=== PATIENT | female | born 1980 ===

== ENCOUNTER 2017-12-21 16:29 | Observation (INO) | payer BC, MEDICAID ==
--- NOTE | 2017-12-21 17:24 | ED PDOC ---
Arrival/HPI - General Time Seen by Provider: 12/21/17 17:13 Historian: Patient - History of Present Illness Narrative History of Present Illness (Text): 37yoF, post- from 12/12/17 Dr. Nilson Montero in [place], [place], HTN on labetolol 300mg twice daily, having fatigue which results in difficulty breathing, swelling generalized, and headache but otherwise no chest pain/ abdomen pain which was clarified/nausea/vomiting/fever/chills/cough/pain with urination/loss of limb function/dark or blood stool. 12/21/17 17:22 12/21/17 19:17 Time/Duration: 24 hours Symptom Onset: Gradual Symptom Course: Unchanged Activities at Onset: Rest Context: Sitting Past Medical History - Provider Review Nursing Documentation Reviewed: Yes - Travel History Have you recently traveled outside US w/in the past 3 mons?: No - Infectious Disease Hx of Infectious Diseases: None - Psychiatric Hx Substance Use: No - Surgical History Hx Section: Yes - Anesthesia Hx Anesthesia: Yes Hx Anesthesia Reactions: No Family/Social History - Physician Review Nursing Documentation Reviewed: Yes Family/Social History: No Known Family HX Smoking Status: Unknown If Ever Smoked Hx Alcohol Use: Yes Hx Substance Use: No Allergies/Home Meds Allergies/Adverse Reactions: Allergies No Known Allergies Allergy (Verified 12/21/17 17:20) Home Medications: Home Meds Medication Instructions Recorded Confirmed No Known Home Med 01/13/16 01/13/16 Review of Systems - Review of Systems Constitutional: Fatigue Eyes: Normal ENT: Normal Respiratory: Normal Cardiovascular: Normal Gastrointestinal: Normal Genitourinary Female: Normal Musculoskeletal: Normal Skin: Normal Neurological: Headache Endocrine: Normal Hemo/Lymphatic: Normal Psychiatric: Normal Physical Exam Vital Signs Reviewed: Yes Vital Signs Temp Pulse Resp BP Pulse Ox 12/21/17 18:32 88 20 172/106 H 98 12/21/17 17:28 97.9 F 78 20 193/118 H 99 Appearance: Positive for: Well-Appearing, Non-Toxic, Comfortable Pain Distress: None Mental Status: Positive for: Alert and Oriented X 3 - Systems Exam Head: Present: Atraumatic, Normocephalic Pupils: Present: PERRL Extroacular Muscles: Present: EOMI Conjunctiva: Present: Normal Ears: Present: Normal Mouth: Present: Moist Mucous Membranes Pharnyx: Present: Normal Nose (External): Present: Atraumatic Nose (Internal): Present: Normal Inspection Neck: Present: Normal Range of Motion Respiratory/Chest: Present: Clear to Auscultation, Good Air Exchange Cardiovascular: Present: Regular Rate and Rhythm Abdomen: No: Tenderness, Distention, Normal Bowel Sounds, Peritoneal Signs, Rebound, Guarding, McBurney's Point Tender, Rovsing's Sign Present, Hernias, Feeding Tubes, Ostomy Tubes, Mass/Organomegaly, Scars, Other Rectal: Present: Other (guiac test negative. no gross blood.) Back: Present: Normal Inspection Upper Extremity: Present: Normal Inspection Lower Extremity: Present: Edema. No: Normal Inspection, CALF TENDERNESS, NORMAL PULSES, Cyanosis, Normal ROM, Vidhya's Sign, Tenderness, Swelling, Erythema, Deformity, Temperature Abnormalties, Neurovascularly Intact, Capillary Refill < 2 s, Other Neurological: Present: GCS=15, CN II-XII Intact, Speech Normal, Motor Func Grossly Intact Skin: Present: Warm, Normal Color Psychiatric: Present: Alert, Oriented x 3, Normal Insight, Normal Concentration Medical Decision Making ED Course and Treatment: 37yoF, post- from 12/12/17 Dr. Sebastián Ayers and [facility] in [place], [place], Diabetes, HTN on labetolol 300mg twice daily, having elevated blood pressure at home 160s systolic - 200 systolic, with fatigue which results in difficulty breathing, swelling generalized, and headache but otherwise no chest pain/abdomen pain which was clarified/nausea/vomiting/fever/chills/cough/ pain with urination/loss of limb function. wbc 8 hb 8 plts 341 trop less than 0.01 bnp 784 AST 51 ALT 78 Alk phos 129 UA negative d/w Dr. Ortiz [phone] who stated recommends admit to the ICU, bp control with magnesium labetolol iv. paged ICU. 12/21/17 19:27 iv magnesium, labetolol, tylenol, zofran. paged ICU. 12/21/17 19:31 iv labetolol gtt. d/w Dr. Joe ICU who will evaluate pt. signed out to Dr. Miller who will repeat bp, fu CT head, CTa chest, ICU, disposition. 12/21/17 19:34 12/21/17 19:35 12/21/17 19:35 12/21/17 19:36 Reassessment Condition: Re-examined, Improved - Lab Interpretations Lab Results: 12/21/17 17:42 12/21/17 17:42 Lab Results 12/21/17 17:42: Beta HCG, Quant 40.82 H 12/21/17 17:42: PT 12.1, INR 1.06, APTT 25.5 12/21/17 17:42: Sodium 142, Potassium 4.5, Chloride 105, Carbon Dioxide 25, Anion Gap 16, BUN 9, Creatinine 0.8, Est GFR ( Amer) > 60, Est GFR (Non- Af Amer) > 60, Random Glucose 101, Calcium 8.9, Magnesium 2.0, Total Bilirubin 0.3, AST 51 H, ALT 78 H, Alkaline Phosphatase 129 H, Lactate Dehydrogenase 567, Total Creatine Kinase 211, Troponin I < 0.01, NT-Pro-B Natriuret Pep 784 H, Total Protein 6.5, Albumin 3.5, Globulin 3.0, Albumin/Globulin Ratio 1.2 12/21/17 17:42: Urine Color Light yellow, Urine Appearance Clear, Urine pH 7.0, Ur Specific [place] 1.010, Urine Protein Negative, Urine Glucose (UA) Negative, Urine Ketones Negative, Urine Blood Negative, Urine Nitrate Negative, Urine Bilirubin Negative, Urine Urobilinogen 0.2, Ur Leukocyte Esterase Negative 12/21/17 17:42: WBC 8.4 D, RBC 3.49 L, Hgb 8.2 L, Hct 25.9 L, MCV 74.2 L, MCH 23.5 L, MCHC 31.7, RDW 16.4 H, Plt Count 341, MPV 8.9, Gran % 63.2, Lymph % ( Auto) 27.6, [place] % (Auto) 5.2, Eos % (Auto) 3.6, Baso % (Auto) 0.4, Gran # 5.34 , Lymph # (Auto) 2.3, [place] # (Auto) 0.4, Eos # (Auto) 0.3, Baso # (Auto) 0.03 I have reviewed the lab results: Yes - RAD Interpretation Radiology Orders: 12/21/17 18:17 HEAD W/O CONTRAST [CT] Stat CHEST PORTABLE [RAD] Stat 12/21/17 18:24 ANGIO CHEST PE PROTOCOL [CT] Stat - EKG Interpretation Interpreted by ED Physician: Yes (NSR, flipped t waves avr, v1, v2, flattened avl) Type: 12 lead EKG - Medication Orders Current Medication Orders: Magnesium Sulfate/Dextrose (Magnesium Sulfate 1 Gm/100 Ml D5w) 1 gm in 100 mls @ 100 mls/hr IVPB ONCE ONE Stop: 12/21/17 19:44 Discontinued Medications Acetaminophen (Tylenol 325mg Tab) 975 mg PO STAT STA Stop: 12/21/17 18:44 Labetalol HCl (Trandate) 20 mg IV STAT STA Stop: 12/21/17 18:44 Ondansetron HCl (Zofran Inj) 2 mg IVP STAT STA Stop: 12/21/17 18:44 Disposition/Present on Arrival - Present on Arrival Any Indicators Present on Arrival: Yes History of DVT/PE: No History of Uncontrolled Diabetes: No Urinary Catheter: No History Surgical Site Infection Following: None - Disposition Have Diagnosis and Disposition been Completed?: Yes Diagnosis: Anemia, Hypertension in , eclampsia, condition Disposition: HOSPITALIZED Patient Problems: Current Active Problems Problem Status Onset Anemia Acute Hypertension in , eclampsia, condition Acute
[2017-12-21 17:55] LABS: BASO # 0.03 K/mm3 (0.0-2.0); BASO % 0.4 % (0.0-3.0); EOS # 0.3 (0.0-0.7); EOS % 3.6 % (1.5-5.0); GRAN # 5.34 (1.4-6.5); GRAN % 63.2 % (50.0-68.0); HEMOGLOBIN 8.2 g/dL (12.0-16.0); LYMPH # 2.3 (1.2-3.4); LYMPH % 27.6 % (22.0-35.0); MEAN CELL VOLUME 74.2 fl (80.0-105.0); MEAN CORPUSCULAR HEMOGLOBIN 23.5 pg (25.0-35.0); MEAN CORPUSCULAR HGB CONC 31.7 g/dl (31.0-37.0); MEAN PLATELET VOLUME 8.9 fl (7.0-11.0); MONO # 0.4 (0.1-0.6); MONO % 5.2 % (1.0-6.0); RBC 3.49 10^6/uL (3.5-6.1); RED CELL DISTRIBUTION WIDTH 16.4 % (11.5-14.5); URINE BILIRUBIN NEGATIVE (NEGATIVE); URINE BLOOD NEGATIVE (NEGATIVE); URINE GLUCOSE (UA) NEGATIVE (NEGATIVE); URINE LEUKOCYTE ESTERASE NEGATIVE Leu/uL (NEGATIVE); URINE PROTEIN NEGATIVE mg/dL (<30 mg/dL); URINE UROBILINOGEN 0.2 E.U./dL (<1 E.U./dL); WHITE BLOOD COUNT 8.4 10^3/ul (4.5-11.0)
[2017-12-21 18:01] LABS: URINE APPEARANCE CLEAR (CLEAR); URINE COLOR LIGHT YELLOW (YELLOW)
[2017-12-21 18:05] LABS: ALB/GLOB RATIO 1.2 (1.1-1.8); ALBUMIN 3.5 g/dL (3.0-4.8); ALT/SGPT 78 U/L (7-56); AST/SGOT 51 U/L (14-36); BLOOD UREA NITROGEN 9 mg/dL (7-21); CALCIUM 8.9 mg/dL (8.4-10.5); GFR AFRICAN-AMERICAN > 60; GFR NON-AFRICAN AMERICAN > 60
[2017-12-21 18:07] LABS: INR 1.06 (0.93-1.08); PARTIAL THROMBOPLASTIN TIME 25.5 Seconds (25.1-36.5); PROTHROMBIN TIME 12.1 SECONDS (9.4-12.5)
[2017-12-21 18:16] LABS: B-TYPE NATRIURETIC PEPTIDE 784 pg/mL (0-450); TROPONIN I < 0.01 ng/mL
[2017-12-21] MEDS ORDERED: Labetalol 5 mg/ml Inj 20ML IV STA (18:43)
[2017-12-21] MEDS ORDERED: Magnesium Sulfate 1 gm in D5W 1 GM/100 ML BAG IVPB ONE ×2 (18:45→19:31)
[2017-12-21] MEDS ORDERED: Iohexol 350 MG/100 ML VIAL ONE (18:47)
[2017-12-21] MEDS ORDERED: Labetalol 100 MG in Sodium Chloride 0.9% 80 ML IV PRN (19:31)
--- NOTE | 2017-12-21 19:39 | CARD ---
APPROVED REPORT EKG Measurement Heart [id number] <Conclusion> Normal sinus rhythm Possible Left atrial enlargement Incomplete right bundle branch block Borderline ECG
--- NOTE | 2017-12-21 21:22 | ED PDOC ---
Arrival/HPI - General Chief Complaint: High Blood Pressure Time Seen by Provider: 12/21/17 17:13 Past Medical History - Travel History Have you recently traveled outside [place] w/in the past 3 mons?: No - Infectious Disease Hx of Infectious Diseases: None - Cardiac Hx Hypertension: Yes - Pulmonary Hx Respiratory Disorders: No - Neurological Hx Neurological Disorder: No - HEENT Hx HEENT Disorder: No - Renal Hx Renal Disorder: No - Endocrine/Metabolic Other/Comment: GDM - Hematological/Oncological Hx Blood Disorders: No - Integumentary Hx Dermatological Disorder: No - Musculoskeletal/Rheumatological Hx Musculoskeletal Disorders: No - Psychiatric Hx Substance Use: No - Surgical History Hx Section: Yes - Anesthesia Hx Anesthesia: Yes Hx Anesthesia Reactions: No Family/Social History Family/Social History: No Known Family HX Smoking Status: Unknown If Ever Smoked Hx Alcohol Use: Yes Hx Substance Use: No Allergies/Home Meds Allergies/Adverse Reactions: Allergies No Known Allergies Allergy (Verified 12/21/17 17:20) Home Medications: Home Meds Medication Instructions Recorded Confirmed Labetalol [Trandate] 300 mg PO BID 12/21/17 12/21/17 Levothyroxine [Synthroid] 100 mcg PO DAILY 12/21/17 12/21/17 MetFORMIN [glucoPHAGE] 1,000 mg PO BID 12/21/17 12/21/17 Physical Exam Vital Signs Reviewed: Yes Vital Signs Temp Pulse Pulse Resp BP BP Pulse Ox 12/22/17 00:13 89 19 98 12/22/17 00:02 82 18 158/87 H 97 12/21/17 21:15 84 19 151/83 H 98 12/21/17 19:56 98.3 F 80 20 143/72 99 12/21/17 19:17 98 H 172/106 H 12/21/17 18:32 88 20 172/106 H 98 12/21/17 17:30 80 192/112 H 12/21/17 17:28 97.9 F 78 20 193/118 H 99 Temperature: Afebrile Blood Pressure: Hypertensive Pulse: Regular Respiratory Rate: Normal Appearance: Positive for: Well-Appearing, Non-Toxic, Comfortable Pain Distress: None Mental Status: Positive for: Alert and Oriented X 3 Medical Decision Making ED Course and Treatment: 12/21/17 19:10 Case endorsed to me by Dr. Pimentel pending CT head and CT angio chest. Patient whose past medical history includes post- delivery. presented with headache, difficulty breathing, and uncontrolled hypertension. Patient's blood pressure was treated earlier with IV Labetalol and controlled. Question of IV Labetalol to drip to be started if pressure elevates. Patient was seen and evaluated by Engraver Letter Dr. Joe and Termite Control Service Representative. Decision on bed placement pending. EXAM: CT Head Without Intravenous Contrast Dictated and Authenticated by: Sharad Anthony MD 12/21/2017 9:34 PM IMPRESSION: 1. No definite acute intracranial abnormality EXAM: CT Angiography Chest With Intravenous Contrast Dictated and Authenticated by: Sharad Anthony MD 12/21/2017 9:51 PM IMPRESSION: 1. No definite CT evidence of pulmonary embolism. 2. Findings suggestive of asymmetric mild pulmonary edema. Clinical correlation is needed. 3. Incidental/non-acute findings are described above. 12/21/17 22:45 Pt. was seen and evaluated by and remote medical coder.Request pt. admitted to telemetry.Further workup /treatment care by magistrate. 12/21/17 23:50 - Lab Interpretations Lab Results: 12/21/17 17:42 12/21/17 17:42 Lab Results 12/21/17 17:42: Beta HCG, Quant 40.82 H 12/21/17 17:42: PT 12.1, INR 1.06, APTT 25.5 12/21/17 17:42: Sodium 142, Potassium 4.5, Chloride 105, Carbon Dioxide 25, Anion Gap 16, BUN 9, Creatinine 0.8, Est GFR ( Amer) > 60, Est GFR (Non- Af Amer) > 60, Random Glucose 101, Calcium 8.9, Magnesium 2.0, Total Bilirubin 0.3, AST 51 H, ALT 78 H, Alkaline Phosphatase 129 H, Lactate Dehydrogenase 567, Total Creatine Kinase 211, Troponin I < 0.01, NT-Pro-B Natriuret Pep 784 H, Total Protein 6.5, Albumin 3.5, Globulin 3.0, Albumin/Globulin Ratio 1.2 12/21/17 17:42: Urine Color Light yellow, Urine Appearance Clear, Urine pH 7.0, Ur Specific [place] 1.010, Urine Protein Negative, Urine Glucose (UA) Negative, Urine Ketones Negative, Urine Blood Negative, Urine Nitrate Negative, Urine Bilirubin Negative, Urine Urobilinogen 0.2, Ur Leukocyte Esterase Negative 12/21/17 17:42: WBC 8.4 D, RBC 3.49 L, Hgb 8.2 L, Hct 25.9 L, MCV 74.2 L, MCH 23.5 L, MCHC 31.7, RDW 16.4 H, Plt Count 341, MPV 8.9, Gran % 63.2, Lymph % ( Auto) 27.6, [place] % (Auto) 5.2, Eos % (Auto) 3.6, Baso % (Auto) 0.4, Gran # 5.34 , Lymph # (Auto) 2.3, [place] # (Auto) 0.4, Eos # (Auto) 0.3, Baso # (Auto) 0.03 - RAD Interpretation Radiology Orders: 12/21/17 18:17 HEAD W/O CONTRAST [CT] Stat CHEST PORTABLE [RAD] Stat 12/21/17 18:24 ANGIO CHEST PE PROTOCOL [CT] Stat - Medication Orders Current Medication Orders: Acetaminophen (Tylenol 325mg Tab) 650 mg PO Q6H PRN PRN Reason: Pain, moderate (4-7) Last Admin: 12/21/17 23:30 Dose: 650 mg MAR Pain/Vitals Document 12/21/17 23:30 [email or web address] (Rec: 12/22/17 01:56 [email or web address] [id number]) Pain Reassessment Is This A Pain ReAssessment? No Sleep Is patient sleeping during reassessment? No Presence of Pain Presence of Pain Yes Pain Scale Used Pain Scale Used Numeric Location Pain Location Body Desk Director Description Constant Intensity 7 Scale Used Numeric Pain Behavior Facial Grimacing Aggravating Factors Changing Position Alleviating Factors Medication Insulin Human Regular (Humulin R Low) 0 units SC ACHS KRYSTAL PRN Reason: Protocol Labetalol HCl (Trandate) 300 mg PO BID KRYSTAL Levothyroxine Sodium (Synthroid) 100 mcg PO ACB KRYSTAL Pantoprazole Sodium (Protonix Ec Tab) 40 mg PO 0600 KRYSTAL Last Admin: 12/22/17 06:23 Dose: 40 mg Discontinued Medications Acetaminophen (Tylenol 325mg Tab) 975 mg PO STAT STA Stop: 12/21/17 18:44 Last Admin: 12/21/17 19:13 Dose: 975 mg MAR Pain/Vitals Document 12/21/17 19:13 [email or web address] (Rec: 12/21/17 19:14 [email or web address] [id number]) Pain Reassessment Is This A Pain ReAssessment? No Sleep Is patient sleeping during reassessment? No Presence of Pain Presence of Pain Yes Pain Scale Used Pain Scale Used Numeric Location Pain Location Body Desk Director Description Constant Intensity 7 Scale Used Numeric Pain Behavior Facial Grimacing Aggravating Factors Changing Position Alleviating Factors Medication Hydralazine HCl (Apresoline) 10 mg IVP ONCE STA Stop: 12/22/17 00:42 Last Admin: 12/22/17 01:02 Dose: 10 mg IVP Administration Document 12/22/17 01:02 TTC (Rec: 12/22/17 01:03 [id number]) Charges for Administration # of IVP Administrations 1 MAR Pulse and Blood Pressure Document 12/22/17 01:02 TTC (Rec: 12/22/17 01:03 [id number]) Blood Pressure Blood Pressure (100/60-150/90) 172/99 Magnesium Sulfate/Dextrose (Magnesium Sulfate 1 Gm/100 Ml D5w) 1 gm in 100 mls @ 100 mls/hr IVPB ONCE ONE Stop: 12/21/17 19:44 Last Admin: 12/21/17 20:31 Dose: 100 mls/hr eMAR Start Stop Document 12/21/17 20:31 [email or web address] (Rec: 12/21/17 20:32 [email or web address] [id number]) Intravenous Solution Start Date 12/21/17 Start Time 20:31 End Date 12/21/17 Magnesium Sulfate/Dextrose (Magnesium Sulfate 1 Gm/100 Ml D5w) 1 gm in 100 mls @ 100 mls/hr IVPB ONCE ONE Stop: 12/21/17 20:30 Last Admin: 12/21/17 23:13 Dose: 100 mls/hr eMAR Start Stop Document 12/21/17 23:13 [email or web address] (Rec: 12/21/17 23:13 [email or web address] [id number]) Intravenous Solution Start Date 12/21/17 Start Time 23:13 End Date 12/21/17 Ibuprofen (Motrin Tab) 800 mg PO STAT STA Stop: 12/22/17 02:06 Last Admin: 12/22/17 02:14 Dose: 800 mg Labetalol HCl (Trandate) 20 mg IV STAT STA Stop: 12/21/17 18:44 Last Admin: 12/21/17 19:17 Dose: 20 mg eMAR Start Stop Document 12/21/17 19:17 [email or web address] (Rec: 12/21/17 19:17 [email or web address] [id number]) Intravenous Solution Start Date 12/21/17 Start Time 19:17 End Date 12/21/17 MAR Pulse and Blood Pressure Document 12/21/17 19:17 [email or web address] (Rec: 12/21/17 19:17 [email or web address] [id number]) Pulse Pulse Rate (60-90) 98 Blood Pressure Blood Pressure (100/60-150/90) 172/106 Ondansetron HCl (Zofran Inj) 2 mg IVP STAT STA Stop: 12/21/17 18:44 Last Admin: 12/21/17 19:14 Dose: 2 mg IVP Administration Document 12/21/17 19:14 [email or web address] (Rec: 12/21/17 19:14 [email or web address] [id number]) Charges for Administration # of IVP Administrations 1 - Scribe Statement The provider has reviewed the documentation as recorded by the Warren Roberts Provider Scribe Attestation: All medical record entries made by the Warren were at my direction and personally dictated by me. I have reviewed the chart and agree that the record accurately reflects my personal performance of the history, physical exam, medical decision making, and the department course for this patient. I have also personally directed, reviewed, and agree with the discharge instructions and disposition. Disposition/Present on Arrival - Present on Arrival Any Indicators Present on Arrival: Yes History of DVT/PE: No History of Uncontrolled Diabetes: No Urinary Catheter: No History of Decub. Ulcer: No History Surgical Site Infection Following: None - Disposition Have Diagnosis and Disposition been Completed?: Yes Diagnosis: Anemia, Hypertension in , eclampsia, condition, Hypertensive emergency Disposition: HOSPITALIZED Disposition Time: 22:52 Patient Problems: Current Active Problems Problem Status Onset Anemia Acute Hypertension in , eclampsia, condition Acute Hypertensive emergency Acute Condition: STABLE
--- NOTE | 2017-12-21 21:34 | CT ---
EXAM: CT Head Without Intravenous Contrast CLINICAL HISTORY: 37 years old, female; Pain; Headache; Tension; Additional info: 37yof, post-, hypertensive w ARREDONDO TECHNIQUE: Axial computed tomography images of the head/brain without intravenous contrast. All CT scans at this facility use one or more dose reduction techniques, viz.: automated exposure control; ma/kV adjustment per patient size (including targeted exams where dose is matched to indication; i.e. head); or iterative reconstruction technique. Coronal and sagittal reformatted images were created and reviewed. COMPARISON: No relevant prior studies available. FINDINGS: Brain: No intracranial hemorrhage. No mass. No definite edema. Ventricles: No hydrocephalus. Bones/joints: No acute fracture. Soft tissues: Unremarkable. Sinuses: No acute sinusitis. Mastoid air cells: No mastoid effusion. Orbits: Unremarkable as visualized. IMPRESSION: 1. No definite acute intracranial abnormality.
--- NOTE | 2017-12-21 21:52 | CT ---
EXAM: CT Angiography Chest With Intravenous Contrast CLINICAL HISTORY: 37 years old, female; Signs and symptoms; Shortness of breath; Patient HX: Post 2x weeks. C section; Additional info: 37f, post-, fatigue/sob. Eval pe. TECHNIQUE: Axial computed tomographic angiography images of the chest with intravenous contrast using pulmonary embolism protocol. All CT scans at this facility use one or more dose reduction techniques, viz.: automated exposure control; ma/kV adjustment per patient size (including targeted exams where dose is matched to indication; i.e. head); or iterative reconstruction technique. MIP reconstructed images were created and reviewed. Coronal and sagittal reformatted images were created and reviewed. CONTRAST: 100 mL of OMNI 350 administered intravenously. COMPARISON: No relevant prior studies available. FINDINGS: Limitations: Suboptimal timing of bolus. Motion artifact - mild. Pulmonary arteries: No definite pulmonary embolism. Aorta: No aneurysm. No dissection. Lungs: Mosaic pattern of lung parenchyma, with scattered groundglass opacities most pronounced within right lower lobe. Interlobular septal thickening. Minimal atelectasis/scarring. Pleural space: Probable trace bilateral pleural effusions. No pneumothorax. Heart: [id number] cardiomegaly. No significant pericardial effusion. Bones/joints: Calcification along right shoulder. Minimal gas within glenohumeral joints. Early degenerative changes of spine. No acute fracture. Soft tissues: Unremarkable. Lymph nodes: No pathologically enlarged lymph nodes. Kidneys and ureters: Small calculus vs contrast within LEFT kidney. IMPRESSION: 1. No definite CT evidence of pulmonary embolism. 2. Findings suggestive of asymmetric mild pulmonary edema. Clinical correlation is needed. 3. Incidental/non-acute findings are described above.
--- NOTE | 2017-12-21 21:55 | CP.PCM.HP ---
<Davina Youssef - Last Filed: 12/21/17 23:24> History of Present Illness - History of Present Illness History of Present Illness: PGY-[address] Joe CC: Preclampsia Ms Thrasher, 37yo morbid obese F, , , with PMHx gestational diabetes and preclampsia, HTN on labetolol 300mg twice daily, and hypothyroidism , post- from 12/12/17 Dr. Nilson Montero in [place], [place], came in for HTN. It was associated with fatigue, SOB, swelling legs, and headache. She started to have high blood pressure in week 14. She never had seizure. She has been taking daily BP, and she noticed that yesterday her BP rises. Mean around 170s/90s. Highest at home was 209/89. She sleeps on 4-5 pillows, no SOB at rest , but (+) SOB on normal house chores. In the ED, VS HR 78, BP 193/118 Pt got tylenol 975 for arredondo, labetalol 20mg IV x 1, mg 1gm x 2, and zofran 2mg EKG: NSR 81, incomplete RBBB, QTc [address]: No acute intracranial a Chest CT: No pulmonary embolism. Asymmetric mild pulmonary edema. small calculus vs contrast in L kidney. ROS - (+) ARREDONDO, mild now, (+) b/l edema (+) fatique, (+) lactating, (+) lochia. (+ ) Dypnsea on exertion Denies dizziness, CP, palpitation, abdomen pain, nausea/vomiting/fever/chills/ cough/pain with urination/loss of limb function/dark or blood stool, numb/ tingling PMH: PMHx gestational diabetes and preclampsia Hypothyrodism morbid obese PSH: , 12/12/17 FH: DM, CAD OBGYN: , 1 loss due to spontanous at week 9. SH: Deneis smoke, drink, drug All: NKDA Med: Metformin 1000 BID thyroxine 100 mcg daily labetolol 300mg twice daily PMD: Nat Cabral Present on Admission - Present on Admission Any Indicators Present on Admission: No Past Patient History - Infectious Disease Hx of Infectious Diseases: None - Past Social History Smoking Status: Unknown If Ever Smoked - CARDIAC Hx Hypertension: Yes - PULMONARY Hx Respiratory Disorders: No - NEUROLOGICAL Hx Neurological Disorder: No - HEENT Hx HEENT Problems: No - RENAL Hx Chronic Kidney Disease: No - ENDOCRINE/METABOLIC Other/Comment: GDM - HEMATOLOGICAL/ONCOLOGICAL Hx Blood Disorders: No - INTEGUMENTARY Hx Dermatological Problems: No - MUSCULOSKELETAL/RHEUMATOLOGICAL Hx Musculoskeletal Disorders: No - PSYCHIATRIC Hx Substance Use: No - SURGICAL HISTORY Hx Section: Yes - ANESTHESIA Hx Anesthesia: Yes Hx Anesthesia Reactions: No Meds Allergies/Adverse Reactions: Allergies Allergy/AdvReac Type Severity Reaction Status Date / Time No Known Allergies Allergy Verified 12/21/17 17:20 Physical Exam - Constitutional Appears: No Acute Distress - Head Exam Head Exam: ATRAUMATIC, NORMAL INSPECTION, NORMOCEPHALIC - Eye Exam Eye Exam: EOMI, Normal appearance, PERRL. absent: Scleral icterus Pupil Exam: NORMAL ACCOMODATION - ENT Exam ENT Exam: Mucous Membranes Moist - Neck Exam Additional comments: supple, No JVD - Respiratory Exam Respiratory Exam: Clear to Auscultation Bilateral, NORMAL BREATHING PATTERN. absent: Rales, Rhonchi, Wheezes - Cardiovascular Exam Cardiovascular Exam: REGULAR RHYTHM, +S1, +S2. absent: Systolic Murmur - GI/Abdominal Exam GI & Abdominal Exam: Normal Bowel Sounds, Soft. absent: Distended, Firm, Guarding, Rigid, Tenderness - Extremities Exam Extremities exam: Positive for: pedal edema, pedal pulses present. Negative for : calf tenderness - Back Exam Back exam: absent: CVA tenderness (L), CVA tenderness (R) - Neurological Exam Neurological exam: Alert, Oriented x3 Additional comments: Motor and sensory grossly intact - Psychiatric Exam Psychiatric exam: Normal Affect, Normal Mood - Skin Skin Exam: Dry, Warm Results - Vital Signs Recent Vital Signs: Last Vital Signs Temp 98.3 F 12/21/17 19:56 Pulse 84 12/21/17 21:15 Resp 19 12/21/17 21:15 BP 151/83 H 12/21/17 21:15 Pulse Ox 98 12/21/17 21:15 - Labs Result Diagrams: 12/21/17 17:42 12/21/17 17:42 Labs: Laboratory Results - last 24 hr 12/21/17 12/21/17 12/21/17 17:42 17:42 17:42 WBC 8.4 D RBC 3.49 L Hgb 8.2 L Hct 25.9 L MCV 74.2 L MCH 23.5 L MCHC 31.7 RDW 16.4 H Plt Count 341 MPV 8.9 Gran % 63.2 Lymph % (Auto) 27.6 [place] % (Auto) 5.2 Eos % (Auto) 3.6 Baso % (Auto) 0.4 Gran # 5.34 Lymph # (Auto) 2.3 [place] # (Auto) 0.4 Eos # (Auto) 0.3 Baso # (Auto) 0.03 PT INR APTT Sodium 142 Potassium 4.5 Chloride 105 Carbon Dioxide 25 Anion Gap 16 BUN 9 Creatinine 0.8 Est GFR ( Amer) > 60 Est GFR (Non-Af Amer) > 60 Random Glucose 101 Calcium 8.9 Magnesium 2.0 Total Bilirubin 0.3 AST 51 H ALT 78 H Alkaline Phosphatase 129 H Lactate Dehydrogenase 567 Total Creatine Kinase 211 Troponin I < 0.01 NT-Pro-B Natriuret Pep 784 H Total Protein 6.5 Albumin 3.5 Globulin 3.0 Albumin/Globulin Ratio 1.2 Beta HCG, Quant Urine Color Light yellow Urine Appearance Clear Urine pH 7.0 Ur Specific [place] 1.010 Urine Protein Negative Urine Glucose (UA) Negative Urine Ketones Negative Urine Blood Negative Urine Nitrate Negative Urine Bilirubin Negative Urine Urobilinogen 0.2 Ur Leukocyte Esterase Negative 12/21/17 12/21/17 17:42 17:42 WBC RBC Hgb Hct MCV MCH MCHC RDW Plt Count MPV Gran % Lymph % (Auto) [place] % (Auto) Eos % (Auto) Baso % (Auto) Gran # Lymph # (Auto) [place] # (Auto) Eos # (Auto) Baso # (Auto) PT 12.1 INR 1.06 APTT 25.5 Sodium Potassium Chloride Carbon Dioxide Anion Gap BUN Creatinine Est GFR ( Amer) Est GFR (Non-Af Amer) Random Glucose Calcium Magnesium Total Bilirubin AST ALT Alkaline Phosphatase Lactate Dehydrogenase Total Creatine Kinase Troponin I NT-Pro-B Natriuret Pep Total Protein Albumin Globulin Albumin/Globulin Ratio Beta HCG, Quant 40.82 H Urine Color Urine Appearance Urine pH Ur Specific [place] Urine Protein Urine Glucose (UA) Urine Ketones Urine Blood Urine Nitrate Urine Bilirubin Urine Urobilinogen Ur Leukocyte Esterase Assessment & Plan - Assessment and Plan (Free Text) Plan: Ms Thrasher, 37yo morbid obese Female, , , with PMHx gestational diabetes and preclampsia, HTN on labetolol 300mg twice daily, hypothyroidism, c/ o HTN. Mean around 170s/90s. Highest at home was 209/89. She never had seizure , but (+) dypnsea on exertion, and sleeping on 4-5 pillows. In the ED, VS HR 78 , BP 193/118. LFT 51, 78, alk phos 129. BNP 784. Pt got tylenol 975 for arredondo, labetalol 20mg IV x 1, mg 1gm x 2, and zofran 2mg. EKG shows NSR 81, incomplete RBBB, QTc 441. Head CT shows no acute intracranial abnormality. Chest CT shows No pulmonary embolism. Asymmetric mild pulmonary edema. small calculus vs contrast in L kidney. Preclampsia Uncontrolled HTN HTN emegency - pulmonary edema, transaminitis - SBP < 150 now. Pt should stay in tele. no need for ICU. - TSH, U protein - Cardiology consult - Telemetry - seizure precaution - trops x 3 - VS q6hr - Labetalol PRN for SBP > 180 - Continue home labetaolol 300 PO BID Dyspnea on exertion R/O CHF - Echocardiogram Pulmonary edema, mild, likely due to uncontrolled HTN - POx normal. No SOB - observe for now. - treat primary cause Small calculus in L kidney vs contrast - No blood in U/A - Asymptomatic Pain from incision - Tylenol PRN Hx metformin use and gestational diabetes - A1C, insulin ISSS Hypothyroidsm - FSH, Free T4, continue home thryoxine Diet: heart health/Carb consist PVX: Protonix, SCD s/r/d w Dr. Joe <Coni Joe - Last Filed: 12/22/17 03:13> Results - Vital Signs Recent Vital Signs: Last Vital Signs Temp 98.3 F 12/22/17 01:09 Pulse 83 12/22/17 01:09 Resp 18 12/22/17 01:09 BP 172/98 H 12/22/17 01:09 Pulse Ox 98 12/22/17 00:13 - Labs Result Diagrams: 12/21/17 17:42 12/21/17 17:42 Labs: Laboratory Results - last 24 hr 12/21/17 12/22/17 23:30 00:45 Lactate Dehydrogenase 556 Total Creatine Kinase 202 Troponin I 0.02 D Free T4 1.19 TSH 3rd Generation 2.76 Attending/Attestation - Attestation I have personally seen and examined this patient.: Yes I have fully participated in the care of the patient.: Yes I have reviewed all pertinent clinical information: Yes Notes (Text): 12/22/17 03:13 Patient was seen when she was in the ER . Agree with history , physical examination, assessment and plan.
[2017-12-22 00:09] LABS: FREE T4 1.19 ng/dL (0.78-2.19)
[2017-12-22 01:19] LABS: TROPONIN I 0.02 ng/mL
[2017-12-22 01:57] VITALS: BMI 48.9
[2017-12-22] MEDS: Pantoprazole 40 mg EC Tab PO SCH (06:23)
[2017-12-22 07:12] LABS: BASO # 0.04 K/mm3 (0.0-2.0); BASO % 0.4 % (0.0-3.0); EOS # 0.4 (0.0-0.7); EOS % 3.7 % (1.5-5.0); GRAN # 6.82 (1.4-6.5); GRAN % 71.7 % (50.0-68.0); HEMOGLOBIN 8.5 g/dL (12.0-16.0); LYMPH # 1.4 (1.2-3.4); LYMPH % 14.9 % (22.0-35.0); MEAN CELL VOLUME 73.6 fl (80.0-105.0); MEAN CORPUSCULAR HEMOGLOBIN 23.2 pg (25.0-35.0); MEAN CORPUSCULAR HGB CONC 31.5 g/dl (31.0-37.0); MEAN PLATELET VOLUME 9.1 fl (7.0-11.0); MONO # 0.9 (0.1-0.6); MONO % 9.3 % (1.0-6.0); RBC 3.67 10^6/uL (3.5-6.1); RED CELL DISTRIBUTION WIDTH 16.5 % (11.5-14.5); WHITE BLOOD COUNT 9.5 10^3/ul (4.5-11.0)
[2017-12-22 07:17] LABS: ALB/GLOB RATIO 1.2 (1.1-1.8); ALBUMIN 3.6 g/dL (3.0-4.8); ALT/SGPT 75 U/L (7-56); AST/SGOT 53 U/L (14-36); BLOOD UREA NITROGEN 8 mg/dL (7-21); CALCIUM 9.1 mg/dL (8.4-10.5); GFR AFRICAN-AMERICAN > 60; GFR NON-AFRICAN AMERICAN > 60
[2017-12-22 07:27] LABS: TROPONIN I < 0.01 ng/mL
[2017-12-22] MEDS: Insulin Reg-LOW-Coverage SC SCH ×3 (07:38→17:01)
[2017-12-22] MEDS: Levothyroxine 100 MCG TAB PO SCH (07:46)
--- NOTE | 2017-12-22 09:34 | RAD ---
PROCEDURE: CHEST RADIOGRAPH, 1 VIEW HISTORY: 37F, with fatigue COMPARISON: None available. FINDINGS: LUNGS: Evaluation of the lungs is limited due to overlying soft tissue. No appreciable focal infiltrate is noted. PLEURA: No pneumothorax or pleural fluid seen. CARDIOVASCULAR: Projection limits evaluation. Heart is probably normal in size. OSSEOUS STRUCTURES: No significant abnormalities. VISUALIZED UPPER ABDOMEN: Normal. OTHER FINDINGS: None. IMPRESSION: Limited exam. No appreciable infiltrate or CHF.
[2017-12-22] MEDS ORDERED: Magnesium Sulfate 2 GM in Sodium Chloride 0.9% 100 ML IVPB ONE (09:40)
--- NOTE | 2017-12-22 09:49 | CP.PCM.PN ---
<Aracelis Emanuel - Last Filed: 12/22/17 13:00> Subjective - Date & Time of Evaluation Date of Evaluation: 12/22/17 Time of Evaluation: 09:47 - Subjective Subjective: Internal Medicine Progress Note: Patient seen and examined at bedside. Per nursing, patient complaining of headache this morning. BP noted to be 160s systolic. Tylenol and motrin given with minimal relief. Will increase Labetolol dose and give magnesium. Offers no other complaints. Denies dizziness, cp, palpitations, sob, abdominal pain, urinary symptoms. Objective - Vital Signs/Intake and Output Vital Signs (last 24 hours): Temp Pulse Resp BP Pulse Ox 98.2 F 84 18 166/87 H 96 12/22/17 06:00 12/22/17 09:22 12/22/17 06:00 12/22/17 09:22 12/22/17 06:00 - Medications Medications: Current Medications Acetaminophen (Tylenol 325mg Tab) 650 mg PO Q6H PRN PRN Reason: Pain, moderate (4-7) Last Admin: 12/21/17 23:30 Dose: 650 mg Magnesium Sulfate 2 gm/ Sodium (Chloride) 104 mls @ 102 mls/hr IVPB ONCE ONE Stop: 12/22/17 10:41 Insulin Human Regular (Humulin R Low) 0 units SC ACHS [facility] PRN Reason: Protocol Last Admin: 12/22/17 07:38 Dose: Not Given Labetalol HCl (Trandate) 400 mg PO BID [facility] Levothyroxine Sodium (Synthroid) 100 mcg PO ACB [facility] Last Admin: 12/22/17 07:46 Dose: 100 mcg Pantoprazole Sodium (Protonix Ec Tab) 40 mg PO 0600 [facility] Last Admin: 12/22/17 06:23 Dose: 40 mg - Labs Labs: 12/22/17 06:00 12/22/17 06:00 PT 12.1 SECONDS (9.4-12.5) 12/21/17 17:42 INR 1.06 (0.93-1.08) 12/21/17 17:42 APTT 25.5 Seconds (25.1-36.5) 12/21/17 17:42 - Constitutional Appears: Well, No Acute Distress - Head Exam Head Exam: ATRAUMATIC, NORMAL INSPECTION, NORMOCEPHALIC - Eye Exam Eye Exam: EOMI, Normal appearance - ENT Exam ENT Exam: Mucous Membranes Moist - Neck Exam Neck Exam: Full ROM - Respiratory Exam Respiratory Exam: Decreased Breath Sounds, NORMAL BREATHING PATTERN. absent: Rales, Rhonchi, Wheezes - Cardiovascular Exam Cardiovascular Exam: REGULAR RHYTHM, +S1, +S2 - GI/Abdominal Exam GI & Abdominal Exam: Soft, Normal Bowel Sounds. absent: Guarding, Rigid, Tenderness, Rebound - Extremities Exam Extremities Exam: Pedal Edema. absent: Calf Tenderness - Back Exam Back Exam: NORMAL INSPECTION - Neurological Exam Neurological Exam: Alert, Awake, Oriented x3 - Psychiatric Exam Psychiatric exam: Normal Affect, Normal Mood - Skin Skin Exam: Dry, Normal Color, Warm Assessment and Plan - Assessment and Plan (Free Text) Assessment: Ms Thrasher, 37yo morbid obese Female, , , with PMHx gestational diabetes and preclampsia, HTN on labetolol 300mg twice daily, hypothyroidism, c/ o HTN. Mean around 170s/90s. Highest at home was 209/89. She never had seizure , but (+) dypnsea on exertion, and sleeping on 4-5 pillows. In the ED, VS HR 78 , BP 193/118. LFT 51, 78, alk phos 129. BNP 784. Pt got tylenol 975 for hansen, labetalol 20mg IV x 1, mg 1gm x 2, and zofran 2mg. EKG shows NSR 81, incomplete RBBB, QTc 441. Head CT shows no acute intracranial abnormality. Chest CT shows No pulmonary embolism. Asymmetric mild pulmonary edema. small calculus vs contrast in L kidney. Preclampsia/Uncontrolled HTN/HTN emegency - pulmonary edema, transaminitis - Stable, afebrile - Monitor on telemetry - Continue Labetalol 300mg TID - HCTZ 25mg PO daily added - Hydralazine prn - Cardiology consult, Dr Head, help appreciated - Seizure precaution - Troponins negative x 3 - Continue home labetaolol 300 PO BID - For headache, Mag sulfate 2gm x 1 dose, Tylenol prn Dyspnea on exertion R/O CHF - BNP mildly elevated 749 - Echocardiogram ordered - Cardiology on consult, help appreciated - CT chest negative for PE, mild pulmonary edema Pulmonary edema, mild, likely due to uncontrolled HTN - POx normal. No SOB - observe for now. - treat primary cause Small calculus in L kidney vs contrast - No blood in U/A - Asymptomatic Pain from incision - Tylenol PRN Hx metformin use and gestational diabetes - Insulin ISSS Hypothyroidsm - continue home thyroxine - TSH and Free T4 within normal range Anemia - Hgb stable at 8.5 - Likely 2/2 iron deficiency - Ferrous sulfate 325mg PO daily Diet: heart health/Carb consist PVX: Protonix, SCD Plan discussed with Dr Hopkins <Dimas Hopkins - Last Filed: 12/22/17 13:30> Objective - Vital Signs/Intake and Output Vital Signs (last 24 hours): Temp Pulse Resp BP Pulse Ox 97.9 F 84 20 159/81 H 96 12/22/17 12:00 12/22/17 12:00 12/22/17 12:00 12/22/17 12:00 12/22/17 06:00 - Medications Medications: Current Medications Acetaminophen (Tylenol 325mg Tab) 650 mg PO Q6H PRN PRN Reason: Pain, moderate (4-7) Last Admin: 12/21/17 23:30 Dose: 650 mg Ferrous Sulfate (Feosol) 324 mg PO DAILY [facility] Hydralazine HCl (Apresoline) 10 mg PO QID PRN PRN Reason: for sbp>170 Hydrochlorothiazide (Hydrodiuril) 25 mg PO DAILY [facility] Last Admin: 12/22/17 12:00 Dose: 25 mg Insulin Human Regular (Humulin R Low) 0 units SC ACHS [facility] PRN Reason: Protocol Last Admin: 12/22/17 11:58 Dose: Not Given Labetalol HCl (Trandate) 300 mg PO TID [facility] Levothyroxine Sodium (Synthroid) 100 mcg PO ACB [facility] Last Admin: 12/22/17 07:46 Dose: 100 mcg Pantoprazole Sodium (Protonix Ec Tab) 40 mg PO 0600 [facility] Last Admin: 12/22/17 06:23 Dose: 40 mg - Labs Labs: 12/22/17 06:00 12/22/17 06:00 PT 12.1 SECONDS (9.4-12.5) 12/21/17 17:42 INR 1.06 (0.93-1.08) 12/21/17 17:42 APTT 25.5 Seconds (25.1-36.5) 12/21/17 17:42 Attending/Attestation - Attestation I have personally seen and examined this patient.: Yes I have fully participated in the care of the patient.: Yes I have reviewed all pertinent clinical information, including history, physical exam and plan: Yes Notes (Text): 12/22/17 13:23 37 year old female with past medical history of hypertension, pre-eclampsia, hypothyroidism and anemia who presented with complaint of elevated BP, headache and dyspnea on exertion. CT head was negative for acute findings. CT chest was negative for PE; showed mild pulmonary edema. Echocardiogram is pending. Cardiology evaluation was requested. She is on labetalol which was increased today. Continue with tylenol prn for headache; she also received magnesium. She is on iron supplements for anemia and synthroid for hypothyroidism. Dimas Hopkins MD Hospitalist.
[2017-12-22 12:48] VITALS: RESP 20
[2017-12-22 13:17] LABS: IRON 23 ug/dL (45-180)
[2017-12-22 13:27] LABS: % IRON SATURATION 5 % (20-55); TOTAL IRON BINDING CAPACITY 436 ug/dL (265-497)
[2017-12-22 17:02] LABS: FERRITIN 13.9 ng/mL
[2017-12-22 17:32] LABS: FOLATE 19.6 ng/mL
--- NOTE | 2017-12-22 22:35 | CON ---
DATE: 12/22/2017 REASON FOR CONSULTATION: Follow up uncontrolled hypertension, eclampsia. BRIEF CLINICAL HISTORY: This is a 37-year-old female who just delivered 10 days ago, who developed hypertension at 14 weeks' of , uncontrolled, started on labetalol 100 mg b.i.d. and kept on increasing to 300 mg b.i.d. by [employer]. Yesterday, the patient's blood pressure at home went up to 209/89 and had severe headache. So, the patient came to the emergency room. Denies any loss of consciousness. Denies any seizure disorder. Denies any numbness or altered mental status. Mother is at the bedside. PAST MEDICAL HISTORY: Significant for eclampsia. At 14th week of the , the patient started developing high blood pressure. SOCIAL HISTORY: Denies any smoking. Denies any history of alcohol abuse. FAMILY HISTORY: No significant history of coronary artery disease. CURRENT MEDICATIONS: As mentioned, the patient is taking labetalol 300 mg p.o. b.i.d., thyroxine 100 mcg daily, and metformin 1 g b.i.d. REVIEW OF SYSTEMS: As per HPI. PHYSICAL EXAMINATION: VITAL SIGNS: Height of the patient 5 feet 6 inches, weight of the patient 278, body mass index 44.7 kg/m2. Rest of the vitals are as follows. Temperature afebrile, heart rate 84, blood pressure /87. HEENT: PERRLA. Extraocular muscles intact. NECK: Supple. No carotid bruit or thyromegaly. CHEST: Clear to auscultation. HEART: S1 and S2 regular. ABDOMEN: Soft. EXTREMITIES: Clubbing and cyanosis negative. LABORATORY DATA: EKG shows normal sinus, left atrial abnormality, incomplete right bundle-branch block. Blood workup as follows. WBC 9.5, hemoglobin 8.5, hematocrit 27, platelet count 381. Chemistry shows sodium 142, potassium 4.2, chloride 105, CO2 of 25, anion gap of 16, BUN 8, creatinine 0.8. Troponin remains negative, flat, which was expected. Total protein 6.7, albumin 3.1. IMPRESSION: Uncontrolled hypertension, obesity, diabetes. RECOMMENDATIONS: We will get lipid profile, TSH, hemoglobin A1c. The patient was on labetalol at home. We will increase labetalol to 300 mg p.o. t.i.d. Since the patient has already delivered, we can give Norvasc if needed or JOY inhibitor p.r.n. hydralazine. We will follow with you. We will get echocardiogram to assess left ventricular function. Thank you, Dr. Hopkins, for providing us the opportunity in taking care of the patient, Price Rosales. Bev Head MD
--- NOTE | 2017-12-22 22:40 | CARD ---
APPROVED REPORT EXAM: Two-dimensional and M-mode echocardiogram with Doppler and color Doppler. INDICATION 2D DIMENSIONS IVSd1.3 (0.7-1.1cm)LVDd5.2 (3.9-5.9cm) PWd1.3 (0.7-1.1cm)LVDs3.3 (2.5-4.0cm) FS (%) 37.3 %LVEF (%)67.1 (>50%) M-Mode DIMENSIONS Left Atrium (MM)4.00 (2.5-4.0cm)Aortic Root2.80 (2.2-3.7cm) Aortic Cusp Exc.1.70 (1.5-2.0cm) Aortic Valve AoV Peak Fakvsgpi692.0cm/Storm Peak GR.17mmHg Mitral Valve MV E Olbiperv120.0cm/sMV E Peak Gr.155mmHgMV A Oespghie70.9cm/s E/A ratio2.0 TDI Lateral E' Peak V11.90cm/sMedial E' Peak V11.60cm/sE/Lateral E'10.4 E/Medial E'10.7 Tricuspid Valve TR Peak [id number]/sRAP [id number] Peak Gr.45mmHg [id number] LEFT VENTRICLE The left ventricle is normal size. There is mild concentric left ventricular hypertrophy. The left ventricular function is normal.EF-65% There is normal LV segmental wall motion. Transmitral Doppler flow pattern is Grade III-reversible restrictive diastolic dysfunction. No left ventricle thrombus noted on this study. There is no ventricular septal defect visualized. There is no left ventricular aneurysm. There is no mass noted in the left ventricle. RIGHT VENTRICLE The right ventricle is normal size. There is normal right ventricular wall thickness. The right ventricular systolic function is normal. ATRIA The left atrium is borderline dilated. The right atrium size is normal. The interatrial septum is intact with no evidence for an atrial septal defect. AORTIC VALVE The aortic valve is normal in structure. There is trace aortic regurgitation. There is no aortic valvular stenosis. There is no aortic valvular vegetation. MITRAL VALVE The mitral valve is thickened but opens well. Mitral regurgitation is moderate. There is no mitral valve stenosis. There is no evidence of mitral valve prolapse. TRICUSPID VALVE The tricuspid valve leaflets are thickened , but open well. There is moderate tricuspid regurgitation.RVSP-55 mm of Hg. There is no tricuspid valve stenosis. There is no tricuspid valve prolapse or vegetation. PULMONIC VALVE The pulmonary valve is normal in structure. There is trace pulmonic valvular regurgitation. There is no pulmonic valvular stenosis. GREAT VESSELS The aortic root is normal in size. The ascending aorta is normal in size. The pulmonary artery is normal. The IVC is normal in size and collapses >50% with inspiration. PERICARDIAL EFFUSION There is no pleural effusion. There is no pericardial effusion. <Conclusion> The left ventricle is normal size. There is mild concentric left ventricular hypertrophy. The left ventricular function is normal.EF-65% There is trace aortic regurgitation. Mitral regurgitation is moderate. There is moderate tricuspid regurgitation.RVSP-55 mm of Hg. The IVC is normal in size and collapses >50% with inspiration. There is no pericardial effusion.
[2017-12-23] MEDS: Insulin Reg-LOW-Coverage SC SCH ×2 (00:17→08:00)
[2017-12-23] MEDS: Pantoprazole 40 mg EC Tab PO SCH (05:38)
[2017-12-23 06:07] VITALS: TEMP 97.9; O2SAT 96
[2017-12-23 07:22] LABS: BASO # 0.05 K/mm3 (0.0-2.0); BASO % 0.6 % (0.0-3.0); EOS # 0.5 (0.0-0.7); EOS % 5.9 % (1.5-5.0); GRAN # 5.03 (1.4-6.5); HEMOGLOBIN 9.4 g/dL (12.0-16.0); LYMPH # 2.4 (1.2-3.4); LYMPH % 27.4 % (22.0-35.0); MEAN CELL VOLUME 72.8 fl (80.0-105.0); MEAN CORPUSCULAR HGB CONC 31.6 g/dl (31.0-37.0); MEAN PLATELET VOLUME 8.9 fl (7.0-11.0); MONO # 0.8 (0.1-0.6); MONO % 9.1 % (1.0-6.0); RBC 4.08 10^6/uL (3.5-6.1); RED CELL DISTRIBUTION WIDTH 16.5 % (11.5-14.5); WHITE BLOOD COUNT 8.8 10^3/ul (4.5-11.0)
[2017-12-23 07:36] LABS: ALB/GLOB RATIO 1.2 (1.1-1.8); ALBUMIN 4.1 g/dL (3.0-4.8); ALT/SGPT 89 U/L (7-56); AST/SGOT 73 U/L (14-36); BLOOD UREA NITROGEN 11 mg/dL (7-21); CALCIUM 9.5 mg/dL (8.4-10.5); GFR AFRICAN-AMERICAN > 60; GFR NON-AFRICAN AMERICAN > 60
[2017-12-23] MEDS: Levothyroxine 100 MCG TAB PO SCH (08:01)
[2017-12-23 08:50] LABS: HDL CHOLESTEROL 57 mg/dL (29-60)
[2017-12-23 09:00] LABS: LDL CHOLESTEROL 138 mg/dL (0-129)
[2017-12-23 09:39] VITALS: BP 146/88; PULSE 89
--- NOTE | 2017-12-23 10:16 | CP.PCM.DIS ---
<Aracelis Emanuel - Last Filed: 12/23/17 12:20> Provider - Provider Date of Admission: 12/21/17 22:49 Attending physician: Dimas Hopkins MD Primary care physician: Lexus Silvestre MD Consults: Cardiology: Dr Head Time Spent in preparation of Discharge (in minutes): 32 Hospital Course - Lab Results Lab Results: Most Recent Lab Values WBC 8.8 10^3/ul (4.5-11.0) 12/23/17 06:30 RBC 4.08 10^6/uL (3.5-6.1) 12/23/17 06:30 Hgb 9.4 g/dL (12.0-16.0) L 12/23/17 06:30 Hct 29.7 % (36.0-48.0) L 12/23/17 06:30 MCV 72.8 fl (80.0-105.0) L 12/23/17 06:30 MCH 23.0 pg (25.0-35.0) L 12/23/17 06:30 MCHC 31.6 g/dl (31.0-37.0) 12/23/17 06:30 RDW 16.5 % (11.5-14.5) H 12/23/17 06:30 Plt Count 392 10^3/uL (120.0-450.0) 12/23/17 06:30 MPV 8.9 fl (7.0-11.0) 12/23/17 06:30 Gran % 57.0 % (50.0-68.0) 12/23/17 06:30 Lymph % (Auto) 27.4 % (22.0-35.0) 12/23/17 06:30 Bleckley % (Auto) 9.1 % (1.0-6.0) H 12/23/17 06:30 Eos % (Auto) 5.9 % (1.5-5.0) H 12/23/17 06:30 Baso % (Auto) 0.6 % (0.0-3.0) 12/23/17 06:30 Gran # 5.03 (1.4-6.5) 12/23/17 06:30 Lymph # (Auto) 2.4 (1.2-3.4) 12/23/17 06:30 Bleckley # (Auto) 0.8 (0.1-0.6) H 12/23/17 06:30 Eos # (Auto) 0.5 (0.0-0.7) 12/23/17 06:30 Baso # (Auto) 0.05 K/mm3 (0.0-2.0) 12/23/17 06:30 PT 12.1 SECONDS (9.4-12.5) 12/21/17 17:42 INR 1.06 (0.93-1.08) 12/21/17 17:42 APTT 25.5 Seconds (25.1-36.5) 12/21/17 17:42 Sodium 139 mmol/L (132-148) 12/23/17 06:30 Potassium 4.2 mmol/L (3.6-5.0) 12/23/17 06:30 Chloride 101 mmol/L (98-107) 12/23/17 06:30 Carbon Dioxide 28 mmol/L (21-33) 12/23/17 06:30 Anion Gap 15 (10-20) 12/23/17 06:30 BUN 11 mg/dL (7-21) 12/23/17 06:30 Creatinine 0.8 mg/dl (0.7-1.2) 12/23/17 06:30 Est GFR ( Amer) > 60 12/23/17 06:30 Est GFR (Non-Af Amer) > 60 12/23/17 06:30 POC Glucose (mg/dL) 90 mg/dL (65-110) 12/23/17 07:17 Random Glucose 95 mg/dL (70-110) 12/23/17 06:30 Calcium 9.5 mg/dL (8.4-10.5) 12/23/17 06:30 Magnesium 2.0 mg/dL (1.7-2.2) 12/21/17 17:42 Iron 23 ug/dL (45-180) L 12/22/17 06:30 TIBC 436 ug/dL (265-497) 12/22/17 06:30 % Saturation 5 % (20-55) L 12/22/17 06:30 Ferritin 13.9 ng/mL 12/22/17 06:30 Total Bilirubin 0.4 mg/dL (0.2-1.3) 12/23/17 06:30 AST 73 U/L (14-36) H D 12/23/17 06:30 ALT 89 U/L (7-56) H 12/23/17 06:30 Alkaline Phosphatase 138 U/L (38-126) H 12/23/17 06:30 Lactate Dehydrogenase 549 U/L (333-699) 12/22/17 06:00 Total Creatine Kinase 184 U/L (35-230) 12/22/17 06:00 Troponin I < 0.01 ng/mL D 12/22/17 06:00 NT-Pro-B Natriuret Pep 784 pg/mL (0-450) H 12/21/17 17:42 Total Protein 7.5 g/dL (5.8-8.3) 12/23/17 06:30 Albumin 4.1 g/dL (3.0-4.8) 12/23/17 06:30 Globulin 3.4 gm/dL 12/23/17 06:30 Albumin/Globulin Ratio 1.2 (1.1-1.8) 12/23/17 06:30 Triglycerides 132 mg/dL (35-160) 12/23/17 06:00 Cholesterol 234 mg/dL (130-200) H 12/23/17 06:00 LDL Cholesterol Direct 138 mg/dL (0-129) H 12/23/17 06:00 HDL Cholesterol 57 mg/dL (29-60) 12/23/17 06:00 Vitamin B12 407 pg/mL (239-931) 12/22/17 06:30 Folate 19.6 ng/mL 12/22/17 06:30 Free T4 1.19 ng/dL (0.78-2.19) 12/21/17 23:30 TSH 3rd Generation 2.76 mIU/mL (0.46-4.68) 12/21/17 23:30 Beta HCG, Quant 40.82 mIU/mL (0-6.15) H 12/21/17 17:42 Urine Color Light yellow (YELLOW) 12/21/17 17:42 Urine Appearance Clear (CLEAR) 12/21/17 17:42 Urine pH 7.0 (4.7-8.0) 12/21/17 17:42 Ur Specific Wolford 1.010 (1.005-1.035) 12/21/17 17:42 Urine Protein Negative mg/dL (<30 mg/dL) 12/21/17 17:42 Urine Glucose (UA) Negative mg/dL (NEGATIVE) 12/21/17 17:42 Urine Ketones Negative mg/dL (NEGATIVE) 12/21/17 17:42 Urine Blood Negative (NEGATIVE) 12/21/17 17:42 Urine Nitrate Negative (NEGATIVE) 12/21/17 17:42 Urine Bilirubin Negative (NEGATIVE) 12/21/17 17:42 Urine Urobilinogen 0.2 E.U./dL (<1 E.U./dL) 12/21/17 17:42 Ur Leukocyte Esterase Negative Laura/uL (NEGATIVE) 12/21/17 17:42 - Hospital Course Hospital Course: History of Present Illness: Ms Thrasher, 37yo morbid obese F, , , with PMHx gestational diabetes and preclampsia, HTN on labetolol 300mg twice daily, and hypothyroidism , post- from 12/12/17 Dr. [facility] in [place], [place], came in for HTN. It was associated with fatigue, SOB, swelling legs, and headache. She started to have high blood pressure in week 14. She never had seizure. She has been taking daily BP, and she noticed that yesterday her BP rises. Mean around 170s/90s. Highest at home was 209/89. She sleeps on 4-5 pillows, no SOB at rest , but (+) SOB on normal house chores. Hospital Course: Patient was admitted to telemetry for hypertensive emergency. BP on admission 193/118. Patient also experiencing headache and dyspnea on exertion. EKG showed NSR, incomplete RBBB. Troponins negative x 3. CT head was negative for acute changes. CT chest was negative for PE, and showed mild asymmetric pulmonary edema. Patient was given IV hydralalzine and IV labetaolol. Cardiology was consulted. Increased Labetolol 300mg TID and added HCTZ 25mg PO daily. Headaches improved after giving Tylenol and magnesium. Patient went for Echocardiogram that showed LVEF 65%, moderate mitral regurgitation. Thyroid function within normal limits. Patient with microcytic anemia, started on ferrous sulfate daily. Cholesterol was elevated, advised diet modification and weight loss at this time. Patient also presented with mildly elevated LFTs, asmpytomatic. Recommending repeat CMP outpatient to trend her liver function, if continues to worsen, consider workup. On day of discharge, patient was doing well, BPs stabilized. Denies headaches, dizziness, cp, palpitations, sob, abdominal pain, urinary symptoms. Patient advised to follow up with PMD and OBGYN within 1 week. Discharge Medications: Ferrous Sulfate 325mg PO daily Labetalol 300mg TID HCTZ 25mg PO daily Levothyroxine 100mcg PO daily Discharge Exam - Head Exam Head Exam: ATRAUMATIC, NORMAL INSPECTION, NORMOCEPHALIC - Eye Exam Eye Exam: EOMI, Normal appearance Pupil Exam: NORMAL ACCOMODATION - ENT Exam ENT Exam: Mucous Membranes Moist - Neck Exam Neck exam: Full Rom - Respiratory Exam Respiratory Exam: Clear to PA & Lateral, NORMAL BREATHING PATTERN, UNREMARKABLE. absent: Decreased Breath Sounds, Rhonchi, Wheezes, Respiratory Distress - Cardiovascular Exam Cardiovascular Exam: REGULAR RHYTHM, +S1, +S2 - GI/Abdominal Exam GI & Abdominal Exam: Normal Bowel Sounds, Soft. absent: Guarding, Rebound, Rigid, Tenderness - Extremities Exam Extremities exam: normal inspection - Neurological Exam Neurological exam: Alert, Normal Gait, Oriented x3 - Psychiatric Exam Psychiatric exam: Normal Affect, Normal Mood - Skin Skin Exam: Dry, Normal Color, Warm Discharge Plan - Discharge Medications Prescriptions: Ferrous Sulfate [Feosol] 324 mg PO DAILY #30 ect hydroCHLOROthiazide [Hydrodiuril] 25 mg PO DAILY #30 tab Labetalol [Trandate] 300 mg PO TID #90 tab Levothyroxine [Synthroid] 100 mcg PO ACB #30 tab - Follow Up Plan Condition: STABLE Disposition: HOME/ ROUTINE Instructions: High Blood Pressure (DC), Normocytic Normochromic Anemia (DC) Additional Instructions: 1. Patient is clear for discharge home 2. Please take medications as prescribed 3. Cholesterol is elevated, advising weight loss and diet modification 4. Please follow up with OBGYN and PMD within 1 week, will need to recheck CMP to monitor liver function 5. If having any worsening symptoms, please go to nearest ER Referrals: Lexus Silvestre MD [Primary Care Provider] - <Dimas Hopkins - Last Filed: 12/23/17 12:29> Provider - Provider Date of Admission: 12/21/17 22:49 Attending physician: Dimas Hopkins MD Primary care physician: Lexus Silvestre MD Time Spent in preparation of Discharge (in minutes): 35 Hospital Course - Lab Results Lab Results: Most Recent Lab Values WBC 8.8 10^3/ul (4.5-11.0) 12/23/17 06:30 RBC 4.08 10^6/uL (3.5-6.1) 12/23/17 06:30 Hgb 9.4 g/dL (12.0-16.0) L 12/23/17 06:30 Hct 29.7 % (36.0-48.0) L 12/23/17 06:30 MCV 72.8 fl (80.0-105.0) L 12/23/17 06:30 MCH 23.0 pg (25.0-35.0) L 12/23/17 06:30 MCHC 31.6 g/dl (31.0-37.0) 12/23/17 06:30 RDW 16.5 % (11.5-14.5) H 12/23/17 06:30 Plt Count 392 10^3/uL (120.0-450.0) 12/23/17 06:30 MPV 8.9 fl (7.0-11.0) 12/23/17 06:30 Gran % 57.0 % (50.0-68.0) 12/23/17 06:30 Lymph % (Auto) 27.4 % (22.0-35.0) 12/23/17 06:30 Bleckley % (Auto) 9.1 % (1.0-6.0) H 12/23/17 06:30 Eos % (Auto) 5.9 % (1.5-5.0) H 12/23/17 06:30 Baso % (Auto) 0.6 % (0.0-3.0) 12/23/17 06:30 Gran # 5.03 (1.4-6.5) 12/23/17 06:30 Lymph # (Auto) 2.4 (1.2-3.4) 12/23/17 06:30 Bleckley # (Auto) 0.8 (0.1-0.6) H 12/23/17 06:30 Eos # (Auto) 0.5 (0.0-0.7) 12/23/17 06:30 Baso # (Auto) 0.05 K/mm3 (0.0-2.0) 12/23/17 06:30 PT 12.1 SECONDS (9.4-12.5) 12/21/17 17:42 INR 1.06 (0.93-1.08) 12/21/17 17:42 APTT 25.5 Seconds (25.1-36.5) 12/21/17 17:42 Sodium 139 mmol/L (132-148) 12/23/17 06:30 Potassium 4.2 mmol/L (3.6-5.0) 12/23/17 06:30 Chloride 101 mmol/L (98-107) 12/23/17 06:30 Carbon Dioxide 28 mmol/L (21-33) 12/23/17 06:30 Anion Gap 15 (10-20) 12/23/17 06:30 BUN 11 mg/dL (7-21) 12/23/17 06:30 Creatinine 0.8 mg/dl (0.7-1.2) 12/23/17 06:30 Est GFR ( Amer) > 60 12/23/17 06:30 Est GFR (Non-Af Amer) > 60 12/23/17 06:30 POC Glucose (mg/dL) 90 mg/dL (65-110) 12/23/17 07:17 Random Glucose 95 mg/dL (70-110) 12/23/17 06:30 Hemoglobin A1c 5.5 % (4.2-6.5) 12/21/17 23:30 Calcium 9.5 mg/dL (8.4-10.5) 12/23/17 06:30 Magnesium 2.0 mg/dL (1.7-2.2) 12/21/17 17:42 Iron 23 ug/dL (45-180) L 12/22/17 06:30 TIBC 436 ug/dL (265-497) 12/22/17 06:30 % Saturation 5 % (20-55) L 12/22/17 06:30 Ferritin 13.9 ng/mL 12/22/17 06:30 Total Bilirubin 0.4 mg/dL (0.2-1.3) 04/29/18 06:30 AST 73 U/L (14-36) H D 12/23/17 06:30 ALT 89 U/L (7-56) H 12/23/17 06:30 Alkaline Phosphatase 138 U/L (38-126) H 12/23/17 06:30 Lactate Dehydrogenase 549 U/L (333-699) 12/22/17 06:00 Total Creatine Kinase 184 U/L (35-230) 12/22/17 06:00 Troponin I < 0.01 ng/mL D 12/22/17 06:00 NT-Pro-B Natriuret Pep 784 pg/mL (0-450) H 12/21/17 17:42 Total Protein 7.5 g/dL (5.8-8.3) 12/23/17 06:30 Albumin 4.1 g/dL (3.0-4.8) 12/23/17 06:30 Globulin 3.4 gm/dL 12/23/17 06:30 Albumin/Globulin Ratio 1.2 (1.1-1.8) 12/23/17 06:30 Triglycerides 132 mg/dL (35-160) 12/23/17 06:00 Cholesterol 234 mg/dL (130-200) H 12/23/17 06:00 LDL Cholesterol Direct 138 mg/dL (0-129) H 12/23/17 06:00 HDL Cholesterol 57 mg/dL (29-60) 12/23/17 06:00 Vitamin B12 407 pg/mL (239-931) 12/22/17 06:30 Folate 19.6 ng/mL 12/22/17 06:30 Free T4 1.19 ng/dL (0.78-2.19) 12/21/17 23:30 TSH 3rd Generation 2.76 mIU/mL (0.46-4.68) 12/21/17 23:30 Beta HCG, Quant 40.82 mIU/mL (0-6.15) H 12/21/17 17:42 Urine Color Light yellow (YELLOW) 12/21/17 17:42 Urine Appearance Clear (CLEAR) 12/21/17 17:42 Urine pH 7.0 (4.7-8.0) 12/21/17 17:42 Ur Specific [place] 1.010 (1.005-1.035) 12/21/17 17:42 Urine Protein Negative mg/dL (<30 mg/dL) 12/21/17 17:42 Urine Glucose (UA) Negative mg/dL (NEGATIVE) 12/21/17 17:42 Urine Ketones Negative mg/dL (NEGATIVE) 12/21/17 17:42 Urine Blood Negative (NEGATIVE) 12/21/17 17:42 Urine Nitrate Negative (NEGATIVE) 12/21/17 17:42 Urine Bilirubin Negative (NEGATIVE) 12/21/17 17:42 Urine Urobilinogen 0.2 E.U./dL (<1 E.U./dL) 12/21/17 17:42 Ur Leukocyte Esterase Negative Laura/uL (NEGATIVE) 12/21/17 17:42 Attending/Attestation - Attestation I have personally seen and examined this patient.: Yes I have fully participated in the care of the patient.: Yes I have reviewed all pertinent clinical information, including history, physical exam and plan: Yes Notes (Text): 12/23/17 12:28 37 year old female with past medical history of hypertension, pre-eclampsia, hypothyroidism and anemia who presented with complaint of elevated BP, headache and dyspnea on exertion. CT head was negative for acute findings. CT chest was negative for PE; showed mild pulmonary edema. Echocardiogram was reviewed. He was seen by cardiology who increased her labetalol and added HCTZ. Her blood pressure improved and headache resolved. She is on iron supplements for anemia and synthroid for hypothyroidism. Patient is discharged home to follow up with her pmd and wheelman. Recommended to monitor her blood pressure and LFTs closely as outpatient. Diams Hopkins MD Hospitalist.
--- NOTE | 2017-12-23 10:22 | CP.PCM.PN ---
Subjective - Date & Time of Evaluation Date of Evaluation: 12/23/17 Time of Evaluation: 06:10 - Subjective Subjective: Lying in bed, no distress,denies shortness of breath,denies chest pain Reason for consultation and follow up: Cardiac evaluation, uncontrolled hypertension, ecclampsia Seen and examined by me and Dr. Head Objective - Vital Signs/Intake and Output Vital Signs (last 24 hours): Temp Pulse Resp BP Pulse Ox 97.9 F 89 20 146/88 96 12/23/17 06:00 12/23/17 09:37 12/23/17 06:00 12/23/17 09:37 12/23/17 06:00 Intake and Output: 12/23/17 12/23/17 06:59 18:59 Intake Total 720 Balance 720 - Medications Medications: Current Medications Acetaminophen (Tylenol 325mg Tab) 650 mg PO Q6H PRN PRN Reason: Pain, moderate (4-7) Last Admin: 12/21/17 23:30 Dose: 650 mg Ferrous Sulfate (Feosol) 324 mg PO DAILY [facility] Last Admin: 12/23/17 09:37 Dose: 324 mg Hydralazine HCl (Apresoline) 10 mg PO QID PRN PRN Reason: for sbp>170 Hydrochlorothiazide (Hydrodiuril) 25 mg PO DAILY [facility] Last Admin: 12/23/17 09:37 Dose: 25 mg Labetalol HCl (Trandate) 300 mg PO TID [facility] Last Admin: 12/23/17 09:37 Dose: 300 mg Levothyroxine Sodium (Synthroid) 100 mcg PO ACB [facility] Last Admin: 12/23/17 08:01 Dose: 100 mcg Pantoprazole Sodium (Protonix Ec Tab) 40 mg PO 0600 [facility] Last Admin: 12/23/17 05:38 Dose: 40 mg - Labs Labs: 12/23/17 06:30 12/23/17 06:30 PT 12.1 SECONDS (9.4-12.5) 12/21/17 17:42 INR 1.06 (0.93-1.08) 12/21/17 17:42 APTT 25.5 Seconds (25.1-36.5) 12/21/17 17:42 Assessment and Plan - Assessment and Plan (Free Text) Assessment: A 37 year old female, morbid obese,came in to the ER due to elevated blood pressure SBP 200's associated with fatigue,shortness of breath and headache, swelling of legs. She just had recently delivered, , preecclampsia being followed by PMD. History of hypertension, hypothyroidism, . Plan: ECHO done yesterday, LVEF 65 %,normal Moderate mitral and tricuspid regurgitation Trace aortic regurgitation. Controlled hypertension now, SBP 140's On Labetolol HCL 300mg TID,Hydrodiuril 25 mg daily,Apresoline 10 mg PRN Continue current medications Continue current treatment Lifestyle modification Can be discharge home Will follow up Plan and treatment discussed with Dr. Head
== END 2017-12-23 11:01 | disposition home or self-care (01) ==
LOC: ED 16:29 → ERH 22:49 → 2RNO 12-22 00:19
PROVIDERS: ADMIT Internal Medicine; ATTEND Internal Medicine
DX: I16.1 Hypertensive emergency (principal); D50.9 Iron deficiency anemia, unspecified; E03.9 Hypothyroidism, unspecified; E11.9 Type 2 diabetes mellitus without complications; E66.01 Morbid (severe) obesity due to excess calories; I10 Essential (primary) hypertension; I45.10 Unspecified right bundle-branch block; J81.1 Chronic pulmonary edema; I08.3 Combined rheumatic disorders of mitral, aortic and tricuspid valves; Z86.32 Personal history of gestational diabetes; Z83.3 Family history of diabetes mellitus; Z82.49 Family history of ischemic heart disease and other diseases of the circulatory system
CPT/HCPCS: 36415; 70450; 71045; 71275; 80053; 80061; 81003; 82550; 82607; 82728; 82746; 82948; 83036; 83540; 83550; 83615; 83735; 83880; 84439; 84443; 84484; 84702; 85025; 85610; 85730; 87086; 93005; 93306; 96365; 96375; 96376; 99285; G0378; J0360; J2405; J3475; Q9967